=== PATIENT | female | born 1965 | race Caucasian/White ===

== ENCOUNTER 2017-06-11 07:46 | Day surgery (SDC) | payer OTHER ==
[2017-06-11] MEDS ORDERED: IOHEXOL 350 MG/ML 50 ML BTL (for Cath Lab) OTHER ONE (07:47)
[2017-06-11 08:25] VITALS: BP 152/78; PULSE 67; RESP 16; TEMP 98; O2SAT 100
[2017-06-11] MEDS ORDERED: ATOR40TA16 PO (08:32)
[2017-06-11] MEDS ORDERED: ASPI-516 CHEW (08:32)
[2017-06-11] MEDS ORDERED: NORE5TAB PO (08:32)
[2017-06-11] MEDS ORDERED: FERR325T18 PO (08:32)
[2017-06-11] MEDS ORDERED: METO25TA3 PO (08:32)
[2017-06-11] MEDS ORDERED: NS 1000P @30 MLS/HR (KVO) IV SCH (09:00)
[2017-06-11] MEDS ORDERED: MIDAZOLAM HCL 2 MG/2 ML VIAL ONE (11:05)
[2017-06-11] MEDS ORDERED: HEPARIN-NS/PF FLUSH BAG 1,000 ML IV FLUSH ONE (11:05)
[2017-06-11] MEDS ORDERED: NITROGLYCERIN INJ 5 ML ONE (11:06)
[2017-06-11] MEDS ORDERED: HEPARIN SODIUM - IV 10,000 UNITS/10 ML VIAL ONE (11:06)
[2017-06-11] MEDS ORDERED: ONDANSETRON HCL 4 MG/2 ML VIAL ONE (11:41)
--- NOTE | 2017-06-11 11:59 | CATHPROC ---
[facility] Report Study Information Study Number Admission Scheduled Start Study Start [id number] Jun 11 2017 7:46AM 06/11/2017 Jun 11 2017 10:57AM [place] Service Cardiac Catheterization Admit Source Facility Department Other [facility] - Twisting Frame Fixer Physician and Clinical Staff Initial Sherif Chester Osteologist Hanna Whittaker RN Recorder Daya Lozano,DISABILITY HEARING OFFICER TECH2 Scrub Mela Kearney,CUSHION SEWER TECH2 Procedures Performed Procedure Location (Site) Vessel Name Coronary Angiograms LCA Left Coronary Coronary Angiograms RCA Right Coronary Wire insertion Radial (right) Radial Art. Equipment Time Heat Treat Puller Description Size Mfg Part Number Used/Scraped TRANSDUCER, TRUWAVE [id number] 11:13 FOY HERNANDEZ * Used W/STOCKCOCK *[id number] *[id number] 11:13 [employer]O Mobile App PACK, CCL CUSTOM * Used *[id number] 11:13 [employer] Mobile App SUPPORT, ARTERIAL ADULT 89941 *[id number] Used [id number] 11:13 All Together Now PACER PEN, SKIN DUAL W/ RULER * Used *[id number] 11:40 MEDTRONIC JL 4.0 DXTERITY CATHETER FR 5 Used *[id number] BAND, RADIAL COMPRESSION TR [id number] 11:43 PRX MEDICAL 24CM Used SHORT 24 *[id number] 11:13 PRX MEDICAL WIRE, EXCHANGE 260CM 3MMJ 260CM Used *[id number] 11:13 NYCOMED OMNIPAQUE, 350 MG, 150ML 150ML [id number] Used [id number] 11:13 ROMANO MEDICAL BLANKET,WARM AIR CCL * Used *[id number] SHEATH, FR6 TRANSRADIAL [id number] 11:31 TERVlingo FR 6 Used SLENDER 10CM *[id number] Equipment Model, Serial, Lot Number and Expiration Data Description Model Number Serial Number Lot Number Expiration Date JL 4.0 DXTERITY CATHETER [id number] 12-20-2019 History: Current Medications Medication Dosage/Unit Route Frequency Last Date/Time Taken ASA LOPRESSOR Statins (any) History: Allergies Allergy Reaction No Known Allergies History: Risk Factors Family History of Hypertension Dyslipidemia Previous ME Previous Heart Failure Premature CAD Yes No No No No Prior Valve Prior PCI Prior CABG Surgery No No No Cerebrovascular Peripheral Artery Chronic Lung On Dialysis Diabetes Disease Disease Disease No No No No No History: Symptoms/Diagnosis Selection Items Angina-unstable History: Stress Tests Stress or Imaging Studies Performed Yes Stress Test SPECT Stress Test SPECT Result Stress Test SPECT Ischemia Risk/Extent Yes Positive Intermediate History: Other Current Smoker Method Quit Packs a Day Years Used Pack Years No Cigarettes 10 Years Ago 1 10 10 Labs Hgb (g/dl) Hct (%) RBC (MIL/MM3) WBC (l/cumm) Platelets (thousands) 11.60-17.00 35.00-51.00 4.00-5.90 4.00-11.00 150.00-450.00 10.1 31.9 3.9 6 395 Glucose (mg/dl) BUN (mg/dl) Creatinine (mg/dl) BUN:Creatinine (1:x) 74.00-106.00 7.00-18.00 0.50-1.30 10.00-20.00 87 13 0.6 21.7 Na (meq/l) K (meq/l) Cl (meq/l) Ca (mg/dl) 136.00-145.00 3.50-5.10 98.00-107.00 8.50-10.10 139 3.9 104 9.7 PT (sec) INR (PTT:PT) 9.80-11.60 0.90-1.10 9.7 0.9 CPK-MB (ng/ML) 0.50-3.60 Not Drawn Medication Medication Total Dose (Bolus/Oral) Medication Total Dosage/Unit 1% XYLOCAINE 20 mL FENTANYL 50 mcg HEPARIN 3000 units NTG (IC) 200 mcg VERSED 2 mg ZOFRAN 4 mg Medications (Bolus/Oral) Medication Time Given Dosage/Unit Administered By Reason VERSED 06/11/2017 11:33:50 AM 2 mg Hanna Whittaker 2 mg VERSED given in lab by Hanna Whittaker RN in Left Antecubital via Peripheral IV. FENTANYL 06/11/2017 11:34:11 AM 50 mcg Hanna Whittaker 50 mcg FENTANYL given in lab by Hanna Whittaker, JOSE ALEJANDRO in Left Antecubital via Peripheral IV. Ordered b y Sherif Montano. 1% XYLOCAINE 06/11/2017 11:34:50 AM 20 mL Sherif Montano 20 mL 1% XYLOCAINE given in lab by Sherif Montano in Right Wrist via Subcutaneous. NTG (IC) 06/11/2017 11:36:50 AM 200 mcg Sherif Montano 200 mcg NTG (IC) given in lab by Sherif Montano via Intra-arterial. Ordered by Sherif Montano. radial cocktail HEPARIN 06/11/2017 11:38:50 AM 3000 units Hanna Whittaker 3000 units HEPARIN given in lab by Hanna Whittaker, JOSE ALEJANDRO in Left Antecubital via Peripheral IV. Ordere d by Sherif Montano. ZOFRAN 06/11/2017 11:42:57 AM 4 mg Hanna Whittaker 4 mg ZOFRAN given in lab by Hanna Whittaker, JOSE ALEJANDRO in Left Antecubital via Central IV. Ordered by Sherif Montano. Medication (Drip) Medication Time Given Dosage/Unit Concentration/Unit Diluent (ml) Solution IV Solutions 06/11/2017 11:02:16 AM 0 mL (IV) 500 NaCl .9 Patient arrived on IV Solutions in Left Antecubital via Peripheral IV. Pump/Drip Flow = 20 ml/hr usin g NaCl .9. Initial Case Assessment Cardiovascular HR Rhythm NIBP Chest Pain 74 sr 141/65 0 Edema Present Skin color Skin None Normal Warm Dry Circulatory - Right Pulses Dorsalis Pedis Femoral Radial 2 2 2 Scale (0,1,2,3,4,d) Scale (0,1,2,3,4,d) Neurological State Oriented to time-place- Alert Moves all extremities person Respiration - General Respiration Rate SpO2 (%) (B/min) 20 100 Final Case Assessment Cardiovascular HR Rhythm NIBP Chest Pain 66 sr 121/72 0 Edema Present Skin color Skin None Normal Warm Dry Circulatory - Right Pulses Dorsalis Pedis Femoral Radial 2 2 2 Scale (0,1,2,3,4,d) Scale (0,1,2,3,4,d) Circulatory - Lower Extremities Color Lower Right Color Lower Left Normal Normal Neurological State Oriented to time-place- Alert Moves all extremities person Respiration - General Respiration Rate SpO2 (%) (B/min) 16 98 Chronological Log Time Study Chronological Log 11:00:34 Patient arrived via Bed. 11:00:35 Patient Name, D.O.B, / Armband Verified By R.N. 11:00:40 Pre-op and post- op instructions given; patient acknowledges understanding of instructions. 11:00:42 Verbal Stimulation=2 Physical Stimulation=2 Airway=2 Respiration=2 TOTAL=8. (0=absent, 1=li mited, 2=present) 11:01:15 Yariel Prominences Protected 11:01:40 Presedation assessment performed by Twisting Frame Fixer RN. 11:01:45 Patient has been NPO for More than 6Hrs. 11:01:46 Skin Breakdown- None 11:02:02 A # 20 IV was noted in the Antecubital (left). Grade = patent 11:02:16 Patient arrived on IV Solutions in Left Antecubital via Peripheral IV. Pump/Drip Flow = 20 ml/hr using NaCl .9. 11:02:47 History and physical on the chart or being dictated. Assessment: Initial Case, HR=74 BPM, Rhythm=sr, MRTA=195/65 mmhg, Chest Pain=0, Edema=None, Col or=Normal, Skin = Warm, Dry 11:02:51 Right Pulses: Melvin Ped=2, Femoral=2, Radial=2 Neurological: State=Alert, Ox3, JIMENEZ Respiration: Resp=20 B/min, MdA4=293 % Vitals capture started with the following parameters, Patient=Adult, Interval=5 min, Initial Pr wsdagm=220 mmHg, 11:08:22 Deflation Rate=5 mmHg, Cuff placed on Left Leg 11:08:55 Reference ECG taken 11:09:04 HR=72 bpm, REQV=696/65 mmhg, CmS2=543.0 %, Resp=10 B/min, Pain=0, Crista=10, Hyde=2 11:10:28 Allens test performed on the right radial and ulnar artery. 11:13:58 HR=74 bpm, LFWD=662/79 mmhg, TqW7=723.0 %, Resp=17 B/min 11:15:10 Patient has been NPO for More than 6Hrs. 11:15:25 Right groin and right radial prepped with 2% chlorhexidine, and draped after a 3 min. waiti ng time. 11:18:27 MD paged 11:18:46 MD responded 11:19:02 HR=71 bpm, ZLRQ=713/74 mmhg, JdA0=803.0 %, Resp=9 B/min 11:20:18 Pressure channel 1 zeroed. 11:24:01 HR=70 bpm, QDAZ=784/67 mmhg, OtH2=966.0 %, Resp=10 B/min, Pain=0, Crista=10, Hyde=2 11:27:54 MD arrived. 11:28:58 HR=74 bpm, SEWH=359/76 mmhg, PqU3=182.0 %, Resp=16 B/min 11:32:40 jordan schwarz Time Out. Correct patient, correct procedure, correct physician, power injector not loaded with contrast with surgical 11:33:24 team present. Time Out Concurred by MD and individual staff in procedure. 11:33:50 2 mg VERSED given in lab by Hanna Whittaker, RN in Left Antecubital via Peripheral IV. 11:33:59 HR=78 bpm, NOAN=981/68 mmhg, LwX1=375.0 %, Resp=16 B/min 50 mcg FENTANYL given in lab by Hanna Whittaker, RN in Left Antecubital via Peripheral IV. Ord ered by Dusty 11:34:11 Sherif. 11:34:44 Case Start 11:34:50 20 mL 1% XYLOCAINE given in lab by Sherif Montano in Right Wrist via Subcutaneous. 11:35:28 Access site was Radial Artery. right 11:35:50 A SHEATH, FR6 TRANSRADIAL SLENDER 10CM FR 6 was advanced into the Radial (right) using the Sara technique. 11:36:50 200 mcg NTG (IC) given in lab by Sherif Montano via Intra-arterial. Ordered by Gloria Montano. radial cocktail A JR 5.0 INFINITI CATHETER FR 5 was advanced over a wire. OMNIPAQUE, 350 MG, 150ML 150ML was us ed for 11:37:32 injections. 3000 units HEPARIN given in lab by Hanna Whittaker, RN in Left Antecubital via Peripheral IV. Ordered by Dusty, 11:38:50 Sherif. Recorded Pressure: LV, HR=77, Condition=Condition 1 11:38:53 (Left Ventricle) LV 122/4/11 Recorded Pressure: LV, Ao, HR=76, Condition=Condition 1 11:39:01 (Left Ventricle) LV 132/4/9, (Aorta) Ao 124/73/94 11:39:02 HR=75 bpm, HRJW=749/61 mmhg, SpO2=96.0 %, Resp=12 B/min 11:39:12 The RCA was injected and visualized at various angles. OMNIPAQUE, 350 MG, 150ML 150ML used . Recorded Pressure: Ao, HR=80, Condition=Condition 1 11:39:23 (Aorta) Ao 126/78/98 11:40:07 Catheter was removed A JL 4.0 DXTERITY CATHETER FR 5 was advanced over a wire. OMNIPAQUE, 350 MG, 150ML 150ML was us ed for 11:40:14 injections. 11:40:37 The LCA was injected and visualized at various angles. OMNIPAQUE, 350 MG, 150ML 150ML used . 11:42:57 4 mg ZOFRAN given in lab by Hanna Whittaker, RN in Left Antecubital via Central IV. Ordere d by Sherif Montano. 11:43:04 A WIRE, EXCHANGE 260CM 3MMJ 260CM was inserted via Radial (right). 11:43:18 Wire and Catheter removed 11:43:57 HR=78 bpm, VTTS=813/72 mmhg, SpO2=97.0 %, Resp=17 B/min 11:46:12 Sheath removed; pressure applied to access site. Radial Compression Device Used. 12 mLs of air placed in BAND, RADIAL COMPRESSION TR SHORT 24 24 CM. Affected 11:46:15 hand 98 % O2 saturation. 11:46:45 Case End 11:46:53 Vitals capture stopped. Assessment: Final Case, HR=66 BPM, Rhythm=sr, OUCV=577/72 mmhg, Chest Pain=0, Edema=None, Color =Normal, Skin = Warm, Dry Right Pulses: Melvin Ped=2, Femoral=2, Radial=2 11:46:56 Lower Right Extremities: Color=Normal Lower Left Extremities: Color=Normal Neurological: State=Alert, Ox3, JIMENEZ Respiration: Resp=16 B/min, SpO2=98 % 11:48:22 Sterile dressing applied to site 11:48:24 No case complications noted. 11:48:53 Bedside Report will be given. 11:50:21 Patient moved to [facility] End Study - Contrast Media Used In Study Contrast Total Opened (mL) Total Used (mL) Total Wasted (mL) Omnipaque 30 30 0 End Study - Maximum Contrast Load Max Contrast Load (mL) 583.3 End Study - Radiation Exposure Fluoro Time (minutes) 1.3 End Study - Patient Disposition Complications Transferred To No Twisting Frame Fixer Holding
[2017-06-11] MEDS ORDERED: BACITRACIN OINT 0.9 GM PKT TOP ONE (12:00)
[2017-06-11] MEDS ORDERED: MISC INFORMATION XX ONE (12:00)
--- NOTE | 2017-06-11 12:07 | MA ---
cc: Sherif Montano MD 06/11/2017 INDICATION: Unstable angina. PROCEDURE PERFORMED: 1. Fluoroscopy with interpretation. 2. Coronary angiography. 3. Left heart catheterization. METHOD: The risks, benefits, and alternatives were discussed with the patient. The patient understood and consented to the procedure. The patient was brought in to the cardiac catheterization lab and placed on the catheterization table. Right wrist was then prepped and draped in a sterile fashion. Right wrist was anesthetized with 2% lidocaine. Right radial artery was cannulated and a 6-[place] Islander 7 cm sheath was placed without difficulty. LEFT HEART CATHETERIZATION: Intraventricular hemodynamics showed 132/4 mmHg. CORONARY ANGIOGRAPHY: 1. Left main coronary is angiographically normal. 2. Left anterior descending coronary is angiographically normal. 3. Left circumflex angiography normal. 4. Right coronary is a dominant vessel giving rise to a small posterior descending branch, angiographically normal. CONCLUSIONS: Angiographically normal coronary arteries. PLAN: Patient has no significant obstructive coronary disease. Symptoms are either a dynamic obstruction due to Prinzmetal angina or noncardiac etiology. Patient would be potentially cleared for any upcoming surgical procedures; i.e. hysterectomy. Patient is going to follow up with Dr. Harvinder Byrd, cardiology, [facility]. Sherif Montano MD ASHWIN/TI , 11:55 AM , 12:06 PM
== END 2017-06-11 15:31 | disposition home or self-care (01) ==
LOC: HDOC 07:46 → HDIC 07:47 → HDOC 15:31
PROVIDERS: ATTEND Internal Medicine
DX: I20.0 Unstable angina (principal); R94.39 Abnormal result of other cardiovascular function study
CPT/HCPCS: 86850; 86900; 86901; 93454; 99152; C1769; C1893; J1644; J2250; J2405; J3010; J7030; Q9967

== ENCOUNTER → 2017-07-06 | Outpatient (CLI) | payer OTHER ==
[~2017-07-06] MED LIST: ASPI-516 CHEW; ATOR40TA16 PO; FERR325T18 PO; METO25TA3 PO; NORE5TAB PO
--- NOTE | 2017-07-06 12:08 | RADRPT ---
EXAM DATE/TIME: 07/06/2017 11:39 [place] COMPARISON: No previous studies available for comparison. INDICATIONS : Evaluate for pneumonia, pneumothorax or communicable disease. Preop chest for hysterectomy on 07/13/17 . No chest complaints at this time MEDICAL HISTORY : None. SURGICAL HISTORY : None. ENCOUNTER: Initial ACUITY: 1 day PAIN SCORE: 0/10 LOCATION: Bilateral chest FINDINGS: PA and lateral views of the chest demonstrate the lungs to be symmetrically aerated without evidence of mass, infiltrate or effusion. The cardiomediastinal contours are unremarkable. Osseous structure s are intact. CONCLUSION: No acute cardiopulmonary disease. Mamadou Hall MD on July 06, 2017 at 12:03 Board Certified Radiologist. This report was verified electronically.
--- NOTE | 2017-07-07 18:36 | EKG ---
Date Performed: 07/06/2017 Time Performed: 10:51:57 PTAGE: 52 years EKG: Sinus rhythm NORMAL ECG NO PREVIOUS TRACING DOCTOR: Evaristo Bazan Interpretating Date/Time 07/07/2017 18:35:11
== END ==
LOC: CPRE 10:21
PROVIDERS: ATTEND Obstetrics & Gynecology
DX: Z01.811 Encounter for preprocedural respiratory examination (principal); Z01.810 Encounter for preprocedural cardiovascular examination; N92.4 Excessive bleeding in the premenopausal period; R93.8 Abnormal findings on diagnostic imaging of other specified body structures; N84.0 Polyp of corpus uteri
CPT/HCPCS: 71046; 93005

== ENCOUNTER 2017-07-13 10:50 | Day surgery (SDC) | payer OTHER ==
[~2017-07-13] VITALS: Ht 162.6 cm; Wt 67.7 kg
[~2017-07-13 10:50] MED LIST changes: -ASPI-516 CHEW; -ATOR40TA16 PO; -METO25TA3 PO; -NORE5TAB PO
[2017-07-13] MEDS ORDERED: SODIUM CHLORID 0.9% 500 ML IV PRN (11:30)
[2017-07-13] MEDS ORDERED: METOPROLOL TARTRATE 25 MG TAB PO PRN (11:30)
[2017-07-13] MEDS ORDERED: CHLORHEXIDINE GLUCONATE 2 % 1 PACK (2 CLOTHS) TOPICAL PRN (11:30)
[2017-07-13] MEDS ORDERED: POVIDONE IODINE 5% (ANTISEPSIS KIT) 4 APPLICATIONS EACH NARE PRN (11:30)
[2017-07-13] MEDS ORDERED: LACTATED RINGER'S 1000 ML IV PRN (11:30)
[2017-07-13] MEDS ORDERED: GLYCOPYRROLATE 1 MG/5 ML SYRINGE IV PUSH ONE (12:00)
[2017-07-13] MEDS ORDERED: DEXAMETHASONE SOD PHOS 4 MG/ML VIAL IV ONE (12:00)
[2017-07-13] MEDS ORDERED: ONDANSETRON HCL 4 MG/2 ML VIAL IV ONE (12:00)
[2017-07-13] MEDS ORDERED: KETOROLAC TROMETHAMINE 30 MG/ML (IVP) VIAL IV PUSH ONE (12:00)
[2017-07-13] MEDS ORDERED: ROCURONIUM INJ 50 MG/5 ML SYRINGE IV PUSH ONE (12:00)
[2017-07-13] MEDS ORDERED: LIDOCAINE HCL 1% PF 5 ML SYRINGE OTHER ONE (12:00)
[2017-07-13] MEDS ORDERED: NEOSTIGMINE 5 MG/5 ML SYRINGE IV PUSH ONE (12:00)
[2017-07-13] MEDS ORDERED: ePHEDrine/NS 25 MG/5 ML SYRINGE IV ONE (12:00)
[2017-07-13] MEDS ORDERED: ceFAZolin INJ 1,000 MG VIAL IV ONE (12:00)
[2017-07-13] MEDS ORDERED: ACETAMINOPHEN 1000 MG/100 ML 100 ML IV ONE ×2 (12:22→12:46)
[2017-07-13] MEDS ORDERED: FAMOTIDINE 20 MG/2 ML VIAL ONE (12:22)
[2017-07-13] MEDS ORDERED: APREPITANT 40 MG CAP ONE (12:22)
[2017-07-13] MEDS ORDERED: SUGAMMADEX SODIUM 200 MG/2 ML VIAL IV PUSH ONE (12:46)
[2017-07-13] MEDS ORDERED: NALOXONE HCL 0.4 MG/ML AMP ONE (12:47)
[2017-07-13] MEDS ORDERED: MIDAZOLAM HCL 2 MG/2 ML VIAL ONE (13:55)
[2017-07-13] MEDS ORDERED: DO NOT ADM ANY ANTICOAGULANT DRUGS PRN (15:51)
[2017-07-13] MEDS ORDERED: SODIUM CHLORIDE 0.9% FLUSH 10 ML FLUSH IV FLUSH PRN (16:00)
[2017-07-13] MEDS ORDERED: diphenhydrAMINE HCL 25 MG CAP PO PRN (16:00)
[2017-07-13] MEDS ORDERED: ZOLPIDEM TARTRATE 5 MG TAB PO PRN (16:00)
[2017-07-13] MEDS: LACTATED RINGER'S 1000 ML INJ 1,000 ML IV SCH ×2 (16:00→23:50)
[2017-07-13] MEDS ORDERED: DOCUSATE SODIUM 100 MG CAP PO SCH (16:00)
[2017-07-13] MEDS ORDERED: ONDANSETRON HCL 4 MG/2 ML VIAL IVP PRN (16:00)
[2017-07-13] MEDS ORDERED: oxyCODONE/ACETAMINOPHEN 5 MG/325 MG TAB PO PRN (16:00)
[2017-07-13] MEDS ORDERED: *ONDANSETRON 4 MG VIAL PERIprocedural Use ONLY ONE (16:23)
--- NOTE | 2017-07-13 16:25 | MP ---
cc: Bob Higginbotham MD DATE OF OPERATION: 07/13/2017 Corrected Copy: 07/16/17 PREOPERATIVE DIAGNOSES: 1. Abnormal perimenopausal bleeding, status post dilation and curettage and hysteroscopic exam. 2. Thick endometrium. 3. Possible endometrial polyp. POSTOPERATIVE DIAGNOSES: 1. Abnormal perimenopausal bleeding, status post dilation and curettage and hysteroscopic exam. 2. Thick endometrium. 3. Possible endometrial polyp. PROCEDURE PERFORMED: Laparoscopic-assisted vaginal hysterectomy and bilateral salpingectomy. ANESTHESIA: General endotracheal intubation. SURGEON: Bob Higginbotham MD FINDINGS: Examination under anesthesia: Vagina was clean. Cervix was clean and without lesions. The uterus was normal in size, shape and consistency and freely mobile. The adnexa was negative for masses. Laparoscopic exam reveals normal uterus, normal tubes, normal ovaries, normal posterior and anterior cul-de-sac. The upper abdomen was normal. On the right side there were some omental adhesions to the pelvic sidewall. These were mild and not symptomatic. COMPLICATIONS: None. COUNTS: Correct. ESTIMATED BLOOD LOSS: 100 mL. FLUIDS: Crystalloids. CONDITION: The patient tolerated the procedure well and went to the recovery room in satisfactory condition. INDICATIONS FOR PROCEDURE: This is a lady who has been having abnormal uterine bleeding for quite some time. In the middle of last year, she had D and C and a hysteroscopic exam. She continued bleeding in a persistent pattern for over 2 months. We have been unable to stop her bleeding with D and C and hysteroscope. She is going for definitive surgery now as the ultrasound reveals a thickened endometrium PROCEDURE IN DETAIL: The patient was taken to the operating room, identified by name band and verbally. She was given a general anesthetic and carefully placed in the dorsal lithotomy position for vaginal laparoscopic surgery. She was prepped and draped and a Augustin catheter was inserted. An examination under anesthesia was carried out with the above findings. Once this had been accomplished, a weighted speculum was placed in the vagina. The anterior lip of the cervix was grasped with a single toothed tenaculum. The Hulka clamp was placed without difficulty. The surgeon changed gloves and paid attention to the umbilical area where a small subumbilical incision was made and using the 5 mm trocar, the abdomen was entered under direct vision without difficulty. A Pneumoperitoneum was created with three liters of CO2. Inferolateral to the umbilicus bilaterally, two more 5 mm ports were placed for instrumentation under direct visualization. The entire pelvis and abdomen were carefully inspected with the above findings. The right infundibulopelvic ligament was identified and taken with the LigaSure device. This was taken down and half way down the broad ligament. This was repeated on the left side as well. The round ligament was then taken and a bladder flap was created in the usual fashion pushing the bladder out of harms way. The remainder of the broad ligament was taken down with the harmonic scalpel bilaterally and the uterine vessels were skeletonized. Once they had been skeletonized, the uterine vessels were taken with the harmonic scalpel. Hemostasis was excellent. The Cardinal ligament was then taken down with the harmonic scalpel staying very close to the cervix and pushing the bladder out of harm's way. At this point, all surgical pedicles were inspected and the surgeon turned his attention to the cervix. The weighted speculum was replaced into the vagina and the Hulka clamp removed. The tenaculum was replaced anteriorly and a circumferential incision was made around the cervix without difficulty. Most of the Cardinal ligament had already been taken down. With several clamps of the Danilo, the specimen was freed up and pulled through the vaginal canal. At this time, the pneumoperitoneum was released and the peritoneum was then grasped in a pursestring fashion with 2-0 Vicryl and the peritoneum closed. The vagina was closed with 0 Vicryl pop-offs in interrupted fashion with excellent hemostasis. Going back up to the laparoscope then, we inspected all the pedicles and they were completely dry. We removed the pneumoperitoneum and the three 5 mm ports. The incisions were repaired with a single stitch of 4-0 Monocryl in a subcuticular manner. The patient tolerated the procedure well and went to the Recovery Room in good condition. R. MD FRANCISCO J Mckeon/ANDERS , 03:50 PM , 04:24 PM
[2017-07-13 16:45] VITALS: BP 111/62; PULSE 76; RESP 20; TEMP 97.8; O2SAT 98
[2017-07-13] MEDS ORDERED: ONDANSETRON HCL 4 MG/2 ML VIAL IV PUSH ONE (18:30)
[2017-07-13] MEDS ORDERED: HYDROmorphone HCL PF 2 MG/ML VIAL IV PUSH ONE (18:30)
[2017-07-13 20:00] VITALS: BP 130/70; PULSE 78; RESP 18; TEMP 98.4; O2SAT 98
[2017-07-13] MEDS ORDERED: SODIUM CHLORIDE 0.9% FLUSH 10 ML FLUSH IV FLUSH SCH (21:00)
[2017-07-13] MEDS: IBUPROFEN 600 MG TAB PO SCH (22:32)
[2017-07-13] MEDS: oxyCODONE/ACETAMINOPHEN 5 MG/325 MG TAB PO PRN (23:14)
[2017-07-14] VITALS: BP 129/71; PULSE 62; RESP 16; TEMP 98.2; O2SAT 97
[2017-07-14] MEDS: oxyCODONE/ACETAMINOPHEN 5 MG/325 MG TAB PO PRN ×2 (03:23→11:15)
[2017-07-14 04:00] VITALS: BP 140/69; PULSE 66; RESP 18; TEMP 98.3; O2SAT 97
[2017-07-14 04:55] LABS: AUTOMATED NEUTROPHIL # 5.6 TH/MM3 (1.8-7.7); BASOPHIL % 0.3 % (0.0-2.0); HEMATOCRIT 35.4 % (35.0-46.0); HEMOGLOBIN 11.6 GM/DL (11.6-15.3); LYMPH % 8.7 % (9.0-44.0); LYMPHOCYTE # 0.6 TH/MM3 (1.0-4.8); MEAN CELL VOLUME 79.9 FL (80.0-100.0); MEAN CORPUSCULAR HEMOGLOBIN 26.2 PG (27.0-34.0); MEAN CORPUSCULAR HGB CONC 32.8 % (32.0-36.0); MEAN PLATELET VOLUME 9.1 FL (7.0-11.0); MONO % 5.5 % (0.0-8.0); MONOCYTE # 0.4 TH/MM3 (0-0.9); NEUT % 85.5 % (16.0-70.0); PLATELET COUNT 215 TH/MM3 (150-450); RED BLOOD COUNT 4.43 MIL/MM3 (4.00-5.30); RED CELL DISTRIBUTION WIDTH 25.8 % (11.6-17.2); WHITE BLOOD COUNT 6.6 TH/MM3 (4.0-11.0)
[2017-07-14] MEDS: IBUPROFEN 600 MG TAB PO SCH ×2 (05:04→09:45)
[2017-07-14 05:29] LABS: BICARBONATE 22.7 MEQ/L (21.0-32.0); CALCIUM 8.5 MG/DL (8.5-10.1); CREATININE 0.42 MG/DL (0.50-1.00)
[2017-07-14 06:00] VITALS: BP 112/53; PULSE 62; RESP 18; TEMP 98.6; O2SAT 97
[2017-07-14 07:19] LABS: KERATOCYTES OCC (NORMAL)
--- NOTE | 2017-07-14 08:54 | PD.PN.STU ---
Subjective Remarks Patient is a 52 y/o female with PMH significant for 1) Abnormal perimenopausal bleeding, s/p D&C and hysteroscopic exam and 2) thickened endometrium who is currently on POD #1 s/p laparoscopic-assisted vaginal hysterectomy and bilateral salpingectomy. Her recovery from anesthesia was without complications. She did experienced nausea overnight and received ondansetron, however, it has resolved this AM. Her pain is well controlled on Percocet 5-325mg q4hr PRN, reports it 0/10 Her appetite is returning and is on an unrestricted diet, was waiting on breakfast this AM. Eller still present, voiding well. Passing small amounts of flatus but no stools. She is ambulating. ROS: negative for SOB, cough, chest pain, calf pain, headache Objective Vitals Vital Signs Date Time Temp Pulse Resp B/P (MAP) Pulse Ox O2 Delivery O2 Flow Rate FiO2 07/14/17 06:00 98.6 62 18 112/53 (72) 97 07/14/17 04:00 98.3 66 18 140/69 (92) 97 07/14/17 00:00 98.2 62 16 129/71 (90) 97 07/13/17 20:00 98.4 78 18 130/70 (90) 98 07/13/17 16:45 97.8 76 20 111/62 (78) 98 07/13/17 16:30 55 24 126/58 (80) 99 Nasal Cannula 2 07/13/17 16:15 53 20 126/58 (80) 100 Nasal Cannula 2 07/13/17 16:00 51 20 125/57 (79) 98 Nasal Cannula 2 07/13/17 15:50 97.6 62 18 127/62 (83) 100 Nasal Cannula 2 07/13/17 11:25 97.9 66 16 145/67 (93) 97 I/O 07/13/17 07/13/17 07/13/17 07/14/17 07/14/17 07/14/17 07:00 15:00 23:00 07:00 15:00 23:00 Intake Total 2500 ml Output Total 1100 ml 775 ml Balance 1400 ml -775 ml Intake IV Total 2500 ml Output Urine Total 1000 ml 775 ml Estimated Blood Loss 100 ml Result Diagram: 07/14/17 0433 07/14/17 0433 Objective Remarks GENERAL: Well-nourished, well-developed female in NAD SKIN: Warm and dry. HEAD: Normocephalic. EYES: No scleral icterus. No injection or drainage. NECK: Supple, trachea midline. No JVD or lymphadenopathy. CARDIOVASCULAR: Regular rate and rhythm with II/IV systolic murmur heard best in aortic area, no gallops, or rubs. RESPIRATORY: Breath sounds equal bilaterally at 2 levels posteriorly, 1 level laterally and anteriorly. No accessory muscle use. GASTROINTESTINAL: Abdomen soft, non-tender, nondistended. Port site incisions clean, dry, and intact. Without erythema. EXTREMITIES: No cyanosis, or edema. Peripheral pulses 2+ bilaterally NEUROLOGICAL: Awake, alert, and oriented x 3. Non-focal. Eller present Medications and IVs Current Medications Medications (Trade) Dose Ordered Sig/Sandra Route PRN Reason Start Time Stop Time Status Last Admin Dose Admin Lactated Ringer's 1,000 ml @ 30 mls/hr Q24H PRN IV SEE LABEL COMMENTS 07/13/17 11:30 07/16/17 11:29 07/13/17 11:25 Sodium Chloride 500 ml @ 30 mls/hr [id number] PRN IV SEE LABEL COMMENTS 07/13/17 11:30 07/16/17 11:29 Metoprolol Tartrate (Lopressor) 25 mg MANAGER ADVERTISING PRN PO SEE LABEL COMMENTS 07/13/17 11:30 07/16/17 11:29 Povidone Iodine (Betadine 5% Antisepsis Kit) 1 applic MANAGER ADVERTISING PRN EACH NARE SEE LABEL COMMENTS 07/13/17 11:30 07/16/17 11:29 07/13/17 11:30 Chlorhexidine Gluconate (Chlorhexidine 2% Cloth) 3 pack MANAGER ADVERTISING PRN TOPICAL SEE LABEL COMMENTS 07/13/17 11:30 07/16/17 11:29 07/13/17 11:15 Lactated Ringer's 1,000 ml @ 125 mls/hr Q8H IV 07/13/17 15:50 07/13/17 23:50 Sodium Chloride (NS Flush) 2 ml UNSCH PRN IV FLUSH FLUSH AFTER USING IV ACCESS 07/13/17 16:00 Sodium Chloride (NS Flush) 2 ml BID IV FLUSH 07/13/17 21:00 Ibuprofen (Motrin) 600 mg Q6H PO 07/13/17 16:00 07/14/17 05:04 Oxycodone/ Acetaminophen (Percocet 5-325 Mg) 1 tab Q4H PRN PO PAIN SCALE 1 TO 5 07/13/17 16:00 07/14/17 03:23 Oxycodone/ Acetaminophen (Percocet 5-325 Mg) 2 tab Q4H PRN PO PAIN SCALE 6 TO 10 07/13/17 16:00 Diphenhydramine HCl (Benadryl) 25 mg Q6H PRN PO ITCHING 07/13/17 16:00 Ondansetron HCl (Zofran Inj) 4 mg Q6H PRN IVP NAUSEA OR VOMITING 07/13/17 16:00 07/14/17 03:23 Docusate Sodium (Colace) 100 mg Q12H PO 07/13/17 16:00 07/14/17 05:04 Zolpidem Tartrate (Ambien) 5 mg HS PRN PO INSOMNIA 07/13/17 16:00 Miscellaneous Information ALL NURSING DEPARTME... UNSCH PRN .XX SEE LABEL COMMENTS 07/13/17 15:51 07/14/17 15:50 A/P Assessment and Plan 52 y/o female s/p LAVH with b/l salpingectomy. Patient is stable, ambulating, and beginning to eat. Her pain is well controlled on PO medication. Her is with her and they both feel comfortable going home. Plan: Remove eller this AM Encourage ambulation and maintenance of fluid and dietary intake. D/C home today and return to office in two weeks. May take home meds Discharge Planning D/C home today and return to office in two weeks. May take home meds Oziel Cordero M3 Jul 14, 2017 08:54
[2017-07-14 13:00] VITALS: BP 113/54; PULSE 66; RESP 18; TEMP 98.3; O2SAT 98
--- NOTE | 2017-07-14 15:36 | HHI.DS ---
Discharge Summary Admission Date Admitting Diagnosis CBC/BMP: 07/14/17 0433 07/14/17 0433 Significant Findings Laboratory Tests Test 07/14/17 04:33 Mean Corpuscular Volume 79.9 FL (80.0-100.0) Mean Corpuscular Hemoglobin 26.2 PG (27.0-34.0) Red Cell Distribution Width 25.8 % (11.6-17.2) Neutrophils (%) (Auto) 85.5 % (16.0-70.0) Lymphocytes (%) (Auto) 8.7 % (9.0-44.0) Lymphocytes # (Auto) 0.6 TH/MM3 (1.0-4.8) Keratocytes OCC (NORMAL) Creatinine 0.42 MG/DL (0.50-1.00) Random Glucose 124 MG/DL (74-106) Sodium Level 134 MEQ/L (136-145) Pt Condition on Discharge: Stable Discharge Disposition: Discharge Home Discharge Instructions DIET: Follow Instructions for: As Tolerated, No Restrictions Additional Diet Instructions: Drink at least 8 - 16 oz bottles of water a day Activities you can perform: Shower Only-No Bath Activities to avoid: Prolonged Standing, Strenuous Activity, Sexual Activity Additional Activity Instructio: No driving until off pain medications Bob Higginbotham MD Jul 14, 2017 15:36
== END 2017-07-14 16:20 | disposition home or self-care (01) ==
LOC: HSDC 10:50 → H1EA 17:46 → HSDC 07-14 16:20
PROVIDERS: ATTEND Obstetrics & Gynecology
DX: D25.0 Submucous leiomyoma of uterus (principal); N92.4 Excessive bleeding in the premenopausal period; N72 Inflammatory disease of cervix uteri; N88.8 Other specified noninflammatory disorders of cervix uteri; I10 Essential (primary) hypertension
CPT/HCPCS: 00840; 58552; 80048; 85025; 88307; J0131; J0690; J1100; J1170; J1885; J2250; J2405; J2710; J3010; J7120; J8501; J2310